=== PATIENT | female | born 1995 | race Caucasian/White ===

== ENCOUNTER 2023-09-18 08:10 | Emergency (ER) | payer OTHER, SELFPAY ==
--- NOTE | ~2023-09-18 | CT_ITS ---
CT lumbar spine wo con Ordering provider: Leilani Rahman MD History: 28 years Female with . midline TTP . Comparison: None. Technique: CT lumbar spine without contrast. Radiation reduction technique utilized. DLP measures 34 8.84 mGy. FINDINGS: VERTEBRAE: Normal height and alignment. No subluxation or visible acute fracture. DISC SPACES: Narrowing of the disc L4-L5. T12-L1: No stenosis. L1-L2: No stenosis. L2-L3: No stenosis. L3-L4: No stenosis. L4-L5: No stenosis. Diffuse disc bulge mild intervertebral foraminal narrowing with no definite root compression. L5-S1: No stenosis. Mild diffuse disc bulge. PARASPINOUS SOFT TISSUES: Normal.. IMPRESSION: No acute osseous abnormality. Mild diffuse disc bulge at the level of L4-L5 with narrowing of the foramina. No definite root compre ssion seen. Reviewed, dictated and finalized at location A. IMPRESSION: No acute osseous abnormality. Mild diffuse disc bulge at the level of L4-L5 with narrowing of the foramina. N o definite root compression seen.
[2023-09-18 08:14] VITALS: BP 130/76; PULSE 85; RESP 14; TEMP 36.9; O2SAT 100
--- NOTE | 2023-09-18 08:42 | ED.BACK ---
HPI - Back Pain/Injury General Chief Complaint: Back Pain/Injury Stated Complaint: back pain Time Seen by Provider: 09/18/23 08:40 Source: patient Mode of arrival: ambulatory Limitations: no limitations History of Present Illness HPI Narrative: patient presents with low back pain that started last evening. Patient has been doing a lot of bending lately and in a crawl space area. She has not yet taken anything for pain. She denies any dysuria, hematuria, urgency or frequency. Not incontinent of bowel or bladder. Otherwise no trauma /blunt trauma. Denies any paresthesias or saddle anesthesia. No fevers or IV drug use. She is concerned about mold in her house given some skin lesions. She was evaluated at [facility] care clinic and has a pending appointment to see a primary care physician on September 30 since she did previously have 1. She also has appointment to see a drum reel cutter on 10/24/2023. Related Data Allergies Allergy/AdvReac Type Severity Reaction Status Date / Time No Known Allergies Allergy Verified 09/18/23 08:11 [facility] Social History Social History Other substance usage details: Denies IV drug usage Exam Narrative: GENERAL: Well-appearing, well-nourished, in mild acute distress. HEAD: Normocephalic, atraumatic. EYES: Non injected, non icteric ENT: Nares clear, no rhinorrhea or epistaxis. NECK: Supple. CHEST: Speaking in full sentences. No respiratory distress. HEART: Regular rate and rhythm. . ABDOMEN: Soft, nondistended. Back/EXTREMITIES: Normal range of motion. No edema. normal curvature of spine. Patient does have midline tenderness of low lumbar spine on multiple assessments. No paravertebral tenderness or spasm. demonstrates ability to perform flexion extension as well as side bends. Pain with bilateral straight leg raise. SKIN: Warm, dry. Some small skin lesions on bilateral lower extremities otherwise do not appear infected. Not pettechiae. NEURO: No focal deficits. Alert and oriented x3. sensation intact throughout bilateral lower extremities. PSYCH: Normal mood and affect. Course Vital Signs Vital signs: Vital Signs Temperature 98.5 F 09/18/23 08:14 Pulse Rate 85 09/18/23 08:14 Respiratory Rate 14 09/18/23 08:14 Blood Pressure 130/76 09/18/23 08:14 Pulse Oximetry 100 09/18/23 08:14 Oxygen Delivery Room Air 09/18/23 08:14 Temperature 98.5 F 09/18/23 08:14 Pulse Rate 87 09/18/23 10:32 Respiratory Rate 18 09/18/23 10:32 Blood Pressure 119/79 09/18/23 10:32 Pulse Oximetry 99 09/18/23 10:32 Oxygen Delivery Room Air 09/18/23 08:14 MDM - Back Pain/Injury MDM Narrative Medical decision making narrative: Patient presents with low back pain. In the emergency department they are afebrile with vital signs within normal limits. Back has no deformities, external skin changes, or signs of trauma. Curvature is within normal limits. Lumbar paraspinal muscles are not tender and without spasm. Patient demonstrates flexion, extension, and [id number] rotation of the lumbar spine. Sensation to the lower extremities is normal bilaterally. They do not have any other red flags for fracture, malignancy, infection (e.g. spinal epidural abscess), or aortic/vascular: Age, no trauma, not on chronic steroids, no symptoms of cancer, no fever, IV drug use, HIV, immunosuppression, abdominal pain, tearing pain, syncope, or urinary symptoms. However tenderness is noted on palpation of the spinous processes which are midline. For this reason, will obtain imaging. patient did inquire about obtaining blood work given that she is in the process of being evaluated for mold exposure. I explained that there is no indication for this or ability to follow-up on this and she does have upcoming appointments to establish with a primary care physician the week of September and later with a drum reel cutter
[2023-09-18] MEDS: HYDROcodone/acetaminophen (*CRX) 5-325 MG TABLET 1 TAB PO (08:55)
[2023-09-18] MEDS: KETOROLAC 15 MG/ML VIAL (*BKC) IV PUSH (10:30)
[2023-09-18 10:32] VITALS: BP 119/79; PULSE 87; RESP 18; O2SAT 99
== END 2023-09-18 10:49 | disposition home or self-care (01) ==
PROVIDERS: Emergency Provider Student in an Organized Health Care Education/Training Program
DX: M51.36 Other intervertebral disc degeneration, lumbar region (principal)
CPT/HCPCS: 72131; 96374; 99284; A9270; J1885; J2060